=== PATIENT | male | born 1995 | race Caucasian/White ===

== ENCOUNTER 2021-10-21 01:05 | Emergency (ER) | payer BC, OTHER ==
[~2021-10-21] VITALS: Ht 175.3 cm; Wt 68.0 kg
[2021-10-21 01:13] VITALS: BP 112/72
[2021-10-21 01:38] LABS: BASOPHILS % (AUTO) 0.1 % (0-1); EOSINOPHILS % (AUTO) 0.1 % (0-6); HEMATOCRIT 49.4 % (42.0-52.0); HEMOGLOBIN 16.9 g/dl (14.0-17.9); LYMPHOCYTES # (AUTO) 0.4 X10'3 (1.1-4.8); LYMPHOCYTES % (AUTO) 2.9 % (21-51); MEAN CORPUSCULAR HEMOGLOBIN 30.7 PG (27.0-31.0); MEAN CORPUSCULAR HGB CONC 34.3 g/dL (33.0-36.5); MEAN CORPUSCULAR VOLUME 89.5 FL (78-98); MEAN PLATELET VOLUME 7.1 FL (7.4-10.4); MONOCYTES # (AUTO) 0.5 X10'3 (0-0.9); MONOCYTES % (AUTO) 3.2 % (2-12); NEUTROPHILS # (AUTO) 13.3 X10'3 (1.8-7.7); NEUTROPHILS % (AUTO) 93.7 % (42-75); PLATELET COUNT 350 X10'3 (140-440); RED BLOOD COUNT 5.52 X10'6 (4.70-6.10); RED CELL DISTRIBUTION WIDTH 13.4 % (11.5-14.5); WHITE BLOOD COUNT 14.2 X10'3 (4.5-11.0)
[2021-10-21] MEDS ORDERED: normal saline 1000ML IV soln IVB ONE (01:45)
[2021-10-21] MEDS ORDERED: ondansetron/PF 4mg/2ml inj IV ONE (01:45)
[2021-10-21 01:52] LABS: ALANINE AMINOTRANSFERASE 28 U/L (12-78); ALBUMIN 4.6 G/DL (3.4-5.0); ALBUMIN/GLOBULIN RATIO 1.3 (1.1-1.5); ALKALINE PHOSPHATASE 94 IU/L (46-116); ANION GAP 9 (8-16); ASPARTATE AMINO TRANSFERASE 22 U/L (10-37); BILIRUBIN,TOTAL 1.6 MG/DL (0.1-1.0); BLOOD UREA NITROGEN 18 MG/DL (7-18); BUN/CREATININE RATIO 18.8 (5.4-32.0); CALCIUM 9.1 MG/DL (8.5-10.1); CHLORIDE 106 MMOL/L (99-107); CREATININE 0.96 MG/DL (0.60-1.10); GLUCOSE 122 MG/DL (70-104); SODIUM 143 MMOL/L (135-145); TOTAL CARBON DIOXIDE 28.5 MMOL/L (24-32); TOTAL PROTEIN 8.2 G/DL (6.4-8.2); eGFR > 90 ML/MIN
[2021-10-21 01:55] LABS: ETHANOL < 0.010 GM/DL (0.0-0.010); LIPASE < 50 U/L (73-393); MAGNESIUM 1.9 MG/DL (1.5-2.4)
[2021-10-21] MEDS ORDERED: pantoprazole 40 MG vial IV SCH (08:00)
== END 2021-10-21 02:42 | disposition left against medical advice (07) ==
LOC: ER 01:06
DX: K29.00 Acute gastritis without bleeding (principal); E86.0 Dehydration; R11.2 Nausea with vomiting, unspecified; R19.7 Diarrhea, unspecified; R10.84 Generalized abdominal pain; F12.90 Cannabis use, unspecified, uncomplicated; Z86.19 Personal history of other infectious and parasitic diseases; Z72.89 Other problems related to lifestyle
CPT/HCPCS: 36415; 80053; 80320; 83690; 83735; 85025; 86885; 86900; 86901; 99281; 99283

== ENCOUNTER 2022-05-31 03:20 | Emergency (ER) | payer MEDICAID ==
[~2022-05-31] VITALS: Ht 175.3 cm; Wt 68.1 kg
[2022-05-31 03:23] VITALS: BP 120/72
[2022-05-31] MEDS ORDERED: METR-159 PO (04:26)
[2022-05-31] MEDS ORDERED: DOXY150T5 PO (04:26)
[2022-05-31] MEDS ORDERED: DOXYCYCLINE 100MG CAPSULE PO STA (04:26)
[2022-05-31] MEDS ORDERED: AMOX-117 PO (04:26)
[2022-05-31] MEDS ORDERED: amox tr/potassium clavulanate 875/125mg TAB PO ONE (04:30)
[2022-05-31] MEDS ORDERED: metroNIDAZOLE 500mg tablet PO ONE (04:30)
[2022-05-31 04:37] LABS: BASOPHILS % (AUTO) 0.5 % (0-1); EOSINOPHILS % (AUTO) 0.1 % (0-6); LYMPHOCYTES # (AUTO) 0.8 X10'3 (1.1-4.8); LYMPHOCYTES % (AUTO) 9.9 % (21-51); MEAN CORPUSCULAR HEMOGLOBIN 30.3 PG (27.0-31.0); MEAN CORPUSCULAR HGB CONC 34.1 g/dL (33.0-36.5); MEAN PLATELET VOLUME 6.6 FL (7.4-10.4); MONOCYTES # (AUTO) 0.4 X10'3 (0-0.9); MONOCYTES % (AUTO) 4.8 % (2-12); NEUTROPHILS # (AUTO) 7.3 X10'3 (1.8-7.7); NEUTROPHILS % (AUTO) 84.7 % (42-75); PLATELET COUNT 298 X10'3 (140-440); RED BLOOD COUNT 4.61 X10'6 (4.70-6.10); RED CELL DISTRIBUTION WIDTH 12.7 % (11.5-14.5); WHITE BLOOD COUNT 8.6 X10'3 (4.5-11.0)
[2022-05-31 04:51] LABS: ALANINE AMINOTRANSFERASE 28 U/L (12-78); ALBUMIN 3.9 G/DL (3.4-5.0); ALBUMIN/GLOBULIN RATIO 1.1 (1.1-1.5); ALKALINE PHOSPHATASE 95 IU/L (46-116); ANION GAP 11 (8-16); ASPARTATE AMINO TRANSFERASE 25 U/L (10-37); BILIRUBIN,TOTAL 0.6 MG/DL (0.1-1.0); BLOOD UREA NITROGEN 18 MG/DL (7-18); BUN/CREATININE RATIO 16.7 (5.4-32.0); CALCIUM 9.5 MG/DL (8.5-10.1); CHLORIDE 104 MMOL/L (99-107); CREATININE 1.08 MG/DL (0.60-1.10); GLUCOSE 110 MG/DL (70-104); MAGNESIUM 1.9 MG/DL (1.5-2.4); POTASSIUM 3.5 MMOL/L (3.5-5.1); SODIUM 141 MMOL/L (135-145); TOTAL CARBON DIOXIDE 26.4 MMOL/L (24-32); TOTAL PROTEIN 7.4 G/DL (6.4-8.2); eGFR 81 ML/MIN
--- NOTE | 2022-05-31 06:57 | NUR ---
Patients mother called regarding patients prescriptions being sent over to [facility]. That pharmacy is closed today. Patient requested prescriptions for abx to be called in to [facility]. Called in three antibioics: doxycycline, flagyl, augmentin Left a voicemail message for new prescriptions with [facility]. Patient aware, pharmacy does not open til 1000 today.
[2022-05-31] MEDS ORDERED: SULF1TAB49 PO (16:41)
== END 2022-05-31 05:18 | disposition left against medical advice (07) ==
LOC: ER 03:20
DX: S81.852A Open bite, left lower leg, initial encounter (principal); L03.116 Cellulitis of left lower limb; F12.90 Cannabis use, unspecified, uncomplicated; F15.20 Other stimulant dependence, uncomplicated; W54.0XXA Bitten by dog, initial encounter; Y93.89 Activity, other specified; Y92.89 Other specified places as the place of occurrence of the external cause; Y99.8 Other external cause status
CPT/HCPCS: 36415; 80053; 83605; 83735; 84145; 85025; 87040; 99283; A4615

== ENCOUNTER 2022-05-31 13:15 | Emergency (ER) | payer MEDICAID ==
[~2022-05-31] VITALS: Ht 175.3 cm; Wt 68.0 kg
[~2022-05-31 13:15] MED LIST: AMOX-117 PO; DOXY150T5 PO; METR-159 PO
[2022-05-31] MEDS ORDERED: acetaminophen 325mg tablet PO ONE (14:40)
[2022-05-31] MEDS ORDERED: ampicillin/sulbac 3gm/NS 100ml 100 ML IV ONE (15:00)
[2022-05-31] MEDS ORDERED: LIDOcaine 1% W/epiNEPHrine 1:100,000 20ml vial SQ ONE (15:00)
[2022-05-31] MEDS ORDERED: LIDOCAINE 1%/EPI 1:100,000 inj. 10 ML multi-dose vial SQ ONE (15:25)
[2022-05-31] MEDS ORDERED: SULF1TAB49 PO (16:41)
[2022-05-31 16:52] VITALS: BP 128/79
== END 2022-05-31 16:58 | disposition home or self-care (01) ==
LOC: ER 13:16
DX: T81.49XA Infection following a procedure, other surgical site, initial encounter (principal); F12.90 Cannabis use, unspecified, uncomplicated; F15.20 Other stimulant dependence, uncomplicated
CPT/HCPCS: 12002; 73590; 96365; 99284; A6223; J0295; J7030; A6258; A6449

== ENCOUNTER 2024-01-05 22:46 | Emergency (ER) | payer MEDICAID ==
[~2024-01-05] VITALS: Ht 175.3 cm; Wt 61.4 kg
[2024-01-05] MEDS ORDERED: AMOX-117 PO (23:25)
[2024-01-05] MEDS ORDERED: IBUP-1985 PO (23:25)
[2024-01-05] MEDS: ibuprofen 200mg tablet PO ONE (23:27)
[2024-01-05] MEDS: amox tr/potassium clavulanate 875/125mg TAB PO ONE (23:27)
[2024-01-05 23:29] VITALS: BP 123/65; PULSE 85; RESP 17; TEMP 98.8; O2SAT 99
== END 2024-01-05 23:35 | disposition home or self-care (01) ==
LOC: ER 22:47
DX: K04.7 Periapical abscess without sinus (principal); F12.90 Cannabis use, unspecified, uncomplicated; F15.90 Other stimulant use, unspecified, uncomplicated; Z79.2 Long term (current) use of antibiotics; Z79.1 Long term (current) use of non-steroidal anti-inflammatories (NSAID)
CPT/HCPCS: 99283

== ENCOUNTER 2024-03-12 00:06 | Emergency (ER) | payer MEDICAID ==
[~2024-03-12 00:06] MED LIST changes: -AMOX-117 PO; -DOXY150T5 PO; +IBUP-1985 PO; -METR-159 PO
== END 2024-03-12 00:19 | disposition left against medical advice (07) ==
LOC: ER 00:07
DX: A05.9 Bacterial foodborne intoxication, unspecified (principal); Z53.21 Procedure and treatment not carried out due to patient leaving prior to being seen by health care provider